=== PATIENT | female | born 1995 | race Caucasian/White ===

== ENCOUNTER → 2019-12-05 12:21 | Outpatient (CLI) | payer OTHER, SELFPAY ==
[2018-12-05 19:39] VITALS: BMI 24.3
--- NOTE | 2019-12-05 12:22 | US_ITS ---
STUDY: FIRST TRIMESTER OBSTETRICAL ULTRASOUND REASON FOR EXAM: Female, 24 years old VIABILITY LMP: October 11, 2019. TECHNIQUE: Transabdominal and Transvaginal TECHNICAL QUALITY: Adequate. PRIOR ULTRASOUND: None. FINDINGS: There is visualization of a single gestational sac in a normal intrauterine position. The mean sac diameter (MSD) measures 2.07 cm, indicating an estimated gestational age (EGA) of 7 weeks, 0 days. The gestational sac shape is within normal limits. There is a visualized yolk sac. The yolk sac measures 4 mm. The placenta is non-visualized. There is visualization of a live embryo. The crown-rump length (CRL) measures 3.1 mm, indicating an estimated gestational age (EGA) of 6 weeks, 1 days. There is demonstrated cardiac activity with a heart rate of 120 bpm. The estimated gestation age (EGA) by LMP is 7 weeks, 6 days. The estimated date of delivery (YAZMIN) by LMP is July 17, 2020. The estimated gestation age (EGA) by US is 6 weeks, 4 days. The estimated date of delivery (YAZMIN) by US is July 26, 2020. The uterus measures 8.5 cm x 6.5 cm x 4.8 cm. There is no demonstrated uterine fibroid. The cervix is closed. The right ovary measures 4.1 cm x 2.3 cm x 1.5 cm. There is no right ovarian cyst. There is no visualized right adnexal mass or complex lesion. The left ovary measures 3 cm x 2.3 cm x 1.6 cm. There is no left ovarian cyst. There is no visualized left adnexal mass or complex lesion. There is no fluid in the cul de sac. US/Init OB < 14Wks US IMPRESSION: Single live intrauterine gestation with a mean gestational age of 6 weeks and 4 days. Electronically Signed: Sebastian Chou, at 12:50 EST , Service support ,
== END ==
PROVIDERS: Referring Provider Obstetrics & Gynecology; Visit Provider Obstetrics & Gynecology
DX: Z34.90 Encounter for supervision of normal pregnancy, unspecified, unspecified trimester (principal)
CPT/HCPCS: 76801

== ENCOUNTER → 2019-12-26 | Outpatient (CLI) | payer OTHER, SELFPAY ==
[2019-12-25 14:17] VITALS: BMI 24.3
[2019-12-26 16:43] LABS: Amphetamine Urine VISTA NEGATIVE (<1000 ng/mL); Barbiturate Urine VISTA NEGATIVE (< 200 ng/mL); Benzodiazepine Urine VISTA NEGATIVE (< 200 ng/mL); Cocaine Urine VISTA NEGATIVE (< 300 ng/mL); Ecstacy Urine VISTA NEGATIVE (< 500 ng/mL); Methadone Urine VISTA NEGATIVE (< 300 ng/mL); PCP Urine VISTA NEGATIVE (< 25 ng/mL); THC Urine VISTA NEGATIVE (< 50 ng/mL); Vista UDS pH Range 6
[2019-12-26 19:07] LABS: Chlamydia Trachomatis by PCR Negative (Negative); Neisserai gonorrhoeae by PCR Negative (Negative); Probe Check PASS; Sample Adequacy Control PASS; Specimen Processing Control PASS
== END | disposition home or self-care (01) ==
LOC: LABSPEC 16:26
PROVIDERS: Referring Provider Obstetrics & Gynecology; Visit Provider Obstetrics & Gynecology
DX: Z34.90 Encounter for supervision of normal pregnancy, unspecified, unspecified trimester (principal)
CPT/HCPCS: 80307; 87077; 87086; 87088; 87186; 87491; 87591

== ENCOUNTER → 2020-01-02 13:30 | Outpatient (CLI) | payer OTHER, SELFPAY ==
[2019-12-25 14:17] VITALS: BMI 24.3
[2020-01-02 13:53] LABS: Absolute Lymphocyte Count 1.72 X10^3/uL (0.83-4.51); Absolute Neutrophil Count 7.1 X10^3/uL (2.0-7.7); Basophil# 0.01 X10^3/uL; Basophil% 0.1 % (0-1); Eosinophil# 0.05 X10^3/uL; Eosinophils% 0.5 % (0-5); Hematocrit 36.3 % (37-47); Hemoglobin 12.5 g/dL (12.0-15.0); Lymphocyte # 1.72 X10^3/ul (4.0); Lymphocyte % 18.3 % (19-41); Mean Corp Hgb Conc 34.4 g/dL (32-36); Mean Corpuscular Hgb 31.3 pg (27.0-32.0); Mean Platelet Vol. 10.3 fl (6.2-12.0); Monocyte# 0.51 X10^3/uL; Monocyte% 5.4 % (0-10); NRBC Flagged by Analyzer 0 % (0-5); Neutrophil # 7.06 X10^3/uL (2.7-7.7); Neutrophil % 75.4 % (47-70); Platelet Count 150 K/mm3 (150-450); RBC Distribution Width CV 11.9 % (11.6-14.6); RBC Distribution Width SD 39.3 fl (35.1-43.9); Red Blood Count 3.99 M/mm3 (4.2-5.4); White Blood Count 9.4 K/mm3 (4.4-11.0)
[2020-01-02 14:36] LABS: NATERA MAILED SPECIMEN
[2020-01-03 00:26] LABS: Rapid Plasmin Reagin (RPR) NONREACTIVE (NONREACTIVE)
[2020-01-03 09:24] LABS: HIV - WCH Non-Reactive (Nonreactive); Hepatitis B Surface Antigen Non-Reactive (Nonreactive); Hepatitis C Antibody Non-Reactive (Nonreactive); Rubella IgG 321.8 IU/mL
[2020-01-03 14:06] LABS: HSV 1 IgG < 0.91 index (0.00-0.90); HSV 2 IgG < 0.91 index (0.00-0.90)
== END ==
PROVIDERS: Referring Provider Obstetrics & Gynecology; Visit Provider Obstetrics & Gynecology
DX: Z34.81 Encounter for supervision of other normal pregnancy, first trimester (principal); Z20.2 Contact with and (suspected) exposure to infections with a predominantly sexual mode of transmission; Z31.430 Encounter of female for testing for genetic disease carrier status for procreative management
CPT/HCPCS: 36415; 85025; 86592; 86695; 86696; 86703; 86762; 86803; 86850; 86900; 86901; 87340

== ENCOUNTER → 2020-01-30 | Outpatient (CLI) | payer OTHER, SELFPAY ==
[2020-01-30 10:54] VITALS: BMI 24.3
== END | disposition home or self-care (01) ==
LOC: LABSPEC 14:03
PROVIDERS: Visit Provider Obstetrics & Gynecology
DX: R35.0 Frequency of micturition (principal)
CPT/HCPCS: 87086; 87088

== ENCOUNTER → 2020-05-09 11:41 | Outpatient (CLI) | payer OTHER, SELFPAY ==
[2020-05-09 11:09] VITALS: BMI 24.3
== END ==
PROVIDERS: Referring Provider Obstetrics & Gynecology; Visit Provider Obstetrics & Gynecology
DX: O26.892 Other specified pregnancy related conditions, second trimester (principal); Z3A.00 Weeks of gestation of pregnancy not specified
CPT/HCPCS: 36415; 86850; 86900; 86901

== ENCOUNTER → 2020-05-19 08:10 | Outpatient (CLI) | payer OTHER, SELFPAY ==
[2020-05-09 11:09] VITALS: BMI 24.3
[2020-05-19 08:55] LABS: Absolute Lymphocyte Count 1.57 X10^3/uL (0.83-4.51); Absolute Neutrophil Count 6.6 X10^3/uL (2.0-7.7); Basophil# 0.01 X10^3/uL; Basophil% 0.1 % (0-1); Eosinophil# 0.04 X10^3/uL; Eosinophils% 0.5 % (0-5); Hematocrit 35.2 % (37-47); Hemoglobin 11.8 g/dL (12.0-15.0); Lymphocyte # 1.57 X10^3/ul (4.0); Lymphocyte % 17.8 % (19-41); Mean Corp Hgb Conc 33.5 g/dL (32-36); Mean Corpuscular Hgb 32.8 pg (27.0-32.0); Mean Corpuscular Volume 97.8 fL (81-99); Mean Platelet Vol. 11.3 fl (6.2-12.0); Monocyte# 0.53 X10^3/uL; NRBC Flagged by Analyzer 0 % (0-5); Neutrophil # 6.57 X10^3/uL (2.7-7.7); Neutrophil % 74.6 % (47-70); Platelet Count 142 K/mm3 (150-450); RBC Distribution Width CV 12.7 % (11.6-14.6); RBC Distribution Width SD 45.1 fl (35.1-43.9); White Blood Count 8.8 K/mm3 (4.4-11.0)
[2020-05-19 09:11] LABS: Glucose Challenge Gest 1H 50g 113 mg/dL (70-140)
== END ==
PROVIDERS: Nurse Practitioner Women's Health; Referring Provider Obstetrics & Gynecology; Visit Provider Obstetrics & Gynecology
DX: Z34.90 Encounter for supervision of normal pregnancy, unspecified, unspecified trimester (principal)
CPT/HCPCS: 36415; 82950; 85025

== ENCOUNTER → 2020-05-26 09:13 | Outpatient (CLI) | payer OTHER, SELFPAY ==
[2020-05-26 08:56] VITALS: BMI 26.3
[2020-05-26 09:38] LABS: Absolute Lymphocyte Count 1.53 X10^3/uL (0.83-4.51); Absolute Neutrophil Count 7.6 X10^3/uL (2.0-7.7); Basophil# 0.02 X10^3/uL; Basophil% 0.2 % (0-1); Eosinophil# 0.05 X10^3/uL; Eosinophils% 0.5 % (0-5); Hematocrit 37.1 % (37-47); Hemoglobin 12.7 g/dL (12.0-15.0); Lymphocyte # 1.53 X10^3/ul (4.0); Lymphocyte % 15.5 % (19-41); Mean Corp Hgb Conc 34.2 g/dL (32-36); Mean Corpuscular Hgb 32.9 pg (27.0-32.0); Mean Corpuscular Volume 96.1 fL (81-99); Mean Platelet Vol. 10.9 fl (6.2-12.0); Monocyte# 0.58 X10^3/uL; Monocyte% 5.9 % (0-10); NRBC Flagged by Analyzer 0 % (0-5); Neutrophil # 7.59 X10^3/uL (2.7-7.7); Neutrophil % 76.6 % (47-70); Platelet Count 153 K/mm3 (150-450); RBC Distribution Width CV 13.1 % (11.6-14.6); RBC Distribution Width SD 45.4 fl (35.1-43.9); Red Blood Count 3.86 M/mm3 (4.2-5.4); White Blood Count 9.9 K/mm3 (4.4-11.0)
[2020-05-26 09:49] LABS: Fibrinogen 420 mg/dl (203-444)
[2020-05-27 14:06] LABS: Kleihauer-Betke Negative
== END ==
PROVIDERS: Referring Provider Obstetrics & Gynecology; Visit Provider Obstetrics & Gynecology
DX: S39.91XA Unspecified injury of abdomen, initial encounter (principal)
CPT/HCPCS: 36415; 85025; 85384; 85460

== ENCOUNTER → 2020-06-30 09:16 | Outpatient (CLI) | payer OTHER, SELFPAY ==
[2020-06-30 08:40] VITALS: BMI 26.3
[2020-07-01 15:45] LABS: HSV 1 IgG < 0.91 index (0.00-0.90); HSV 2 IgG < 0.91 index (0.00-0.90)
== END ==
PROVIDERS: Referring Provider Obstetrics & Gynecology; Visit Provider Obstetrics & Gynecology
DX: Z34.90 Encounter for supervision of normal pregnancy, unspecified, unspecified trimester (principal); Z20.2 Contact with and (suspected) exposure to infections with a predominantly sexual mode of transmission
CPT/HCPCS: 36415; 86695; 86696; 87081

== ENCOUNTER 2020-07-08 08:40 | Outpatient (CLI) | payer OTHER, SELFPAY ==
[2020-06-30 08:40] VITALS: BMI 26.3
[2020-07-08 08:48] VITALS: BMI 29.1
[2020-07-08 08:54] VITALS: BP 109/64; PULSE 97; TEMP 36.3; O2SAT 97
[2020-07-08 09:29] LABS: ROM Internal Control Test YES-OK TO RESULT pt. (Internal QC); ROM Patient Test Negative (Negative)
--- NOTE | 2020-07-08 14:17 | OB.TRI.PN ---
Progress Notes Date of Service: 07/08/20 Progress Note: 25-year-old G1 at 37 weeks gestation who presented for rule out rupture and rule out labor. Her cervix was fingertip which is unchanged from her exam in the office. ROM plus was negative. She was discharged home in stable condition. NST was reactive. She has a follow-up appointment in the office later this week. Laboratory Studies: Laboratory Tests 07/08/20 Range/Units 08:50 Vag Amniotic Fld Detect Negative (Negative) - Problem List (1) Vaginal discharge during Status: Acute (2) Antepartum asymptomatic bacteriuria Status: Acute Comment: repeat culture neg (3) Possible exposure to STD Status: Acute Comment: partner HSV pos, titers drawn- negative 12/25 (4) Status: Acute Qualifiers: Comment: NIPT low risk, carrier screening negative 14 out of 14, declined ntd screening. Anatomy US normal (5) Rh negative status during Status: Acute Qualifiers: Comment: rhogam given on 05/09 (6) Supervision of normal Status: Acute Qualifiers: Comment: PRR YAZMIN 07/29/20 girl Emma MYRIAM Jay Annie Select Codes - Urinary/Genital Urinary/Genital CPT Codes: 08703-48 non-stress test Interp
[2020-07-08 17:44] LABS: Mucous, Urine 0 SEEN /hpf (<or=2+); Red Blood Cells-Urine 0 SEEN /hpf (0-5)
[2020-07-08 17:51] LABS: Color, Urine Yellow (Yellow); Glucose, Dipstick Normal (Normal); Ketone-Dipstick Negative (Negative); Leukocyte Esterase-Dipstick 25 /ul (Negative); Nitrite-Dipstick Negative (Negative); Occult Blood-Urine 150 /ul (Negative); Protein-Dipstick Negative (Negative); Urine Bilirubin Dipstick Negative (Negative); Urine Clarity Clear (Clear); Urine Urobilinogen Normal (Normal)
[2020-07-08 18:10] VITALS: TEMP 36.6
[2020-07-08 18:16] LABS: Bacteria 1+ /hpf (None Seen); Squamous Epithelial Cells - UA 0-5 SEEN /hpf (5-10); White Blood Cells 0-5 SEEN /hpf (0-5)
--- NOTE | 2020-07-08 18:25 | OB.TRI.PN_ITS ---
Progress Notes Date of Service: 07/08/20 Progress Note: Patient is a 25-year-old G1, P0 at 37 weeks gestation who presents for vaginal bleeding and dysuria since evaluation in triage earlier today. Bleeding per RN is minimal. UA is positive for leukocytes and blood. NST is reactive. Macrobid sent to pharmacy. Discharged home in stable condition. Laboratory Studies: Laboratory Tests 07/08/20 07/08/20 Range/Units 17:00 08:50 Urine Color Yellow (Yellow) Urine Clarity Clear (Clear) Urine pH 8.0 (5.0 - 8.0) Ur Specific [place] 1.010 (1.002-1.030) Urine Protein Negative (Negative) mg/dl Urine Glucose (UA) Normal (Normal) mg/dl Urine Ketones Negative (Negative) mg/dl Urine Occult Blood 150 H (Negative) /ul Urine Nitrite Negative (Negative) Urine Bilirubin Negative (Negative) mg/dL Urine Urobilinogen Normal (Normal) mg/dl Ur Leukocyte Esterase 25 H (Negative) /ul Urine RBC 0 SEEN (0-5) /hpf Urine WBC 0-5 SEEN (0-5) /hpf Ur Squamous Epith Cells 0-5 SEEN (5-10) /hpf Urine Bacteria 1+ (None Seen) /hpf Urine Mucus 0 SEEN (<or=2+) /hpf Vag Amniotic Fld Detect Negative (Negative) - Problem List (1) Vaginal discharge during Status: Acute (2) Antepartum asymptomatic bacteriuria Status: Acute Comment: repeat culture neg (3) Possible exposure to STD Status: Acute Comment: partner HSV pos, titers drawn- negative 12/25 (4) Status: Acute Qualifiers: Comment: NIPT low risk, carrier screening negative 14 out of 14, declined ntd screening. Anatomy US normal (5) Rh negative status during Status: Acute Qualifiers: Comment: rhogam given on 05/09 (6) Supervision of normal Status: Acute Qualifiers: Comment: PRR YAZMIN 07/29/20 girl Emma Thompson (7) Dysuria in Status: Acute Comment: Seen in triage 07/08 for dysuria. UA positive leuks and blood. Culture pending. Multi Select Codes - Urinary/Genital Urinary/Genital CPT Codes: 59641-27 non-stress test Interp
[2020-07-08 18:35] VITALS: RESP 16; TEMP 36.6
== END 2020-07-08 18:30 | disposition home or self-care (01) ==
LOC: WPOUT 08:44 → OBT 08:45
PROVIDERS: Obstetrics & Gynecology; Referring Provider Obstetrics & Gynecology; Visit Provider Obstetrics & Gynecology
DX: O46.93 Antepartum hemorrhage, unspecified, third trimester (principal); O26.893 Other specified pregnancy related conditions, third trimester; R30.0 Dysuria; Z3A.37 37 weeks gestation of pregnancy
CPT/HCPCS: 59025; 59050; 81001; 84112; 87086; 87088; 99218; G0378

== ENCOUNTER → 2020-07-17 09:00 | Outpatient (CLI) | payer OTHER, SELFPAY ==
[2020-07-16 09:05] VITALS: BMI 29.1
== END ==
PROVIDERS: Referring Provider Obstetrics & Gynecology; Visit Provider Obstetrics & Gynecology
DX: Z11.59 Encounter for screening for other viral diseases (principal)
CPT/HCPCS: 87635; C9803; U0003

== ENCOUNTER → 2020-07-23 | Outpatient (CLI) | payer OTHER, SELFPAY ==
[2020-07-23 11:31] VITALS: BMI 29.1
[2020-07-23 12:41] LABS: ROM Internal Control Test YES-OK TO RESULT pt. (Internal QC); ROM Patient Test Negative (Negative)
== END | disposition home or self-care (01) ==
LOC: LABSPEC 12:17
PROVIDERS: Visit Provider Obstetrics & Gynecology
DX: Z34.90 Encounter for supervision of normal pregnancy, unspecified, unspecified trimester (principal)
CPT/HCPCS: 84112

== ENCOUNTER 2020-07-28 01:00 | Inpatient (IN) | payer OTHER, SELFPAY ==
[2020-07-23 11:31] VITALS: BMI 29.1
[2020-07-28] VITALS (30 sets, daily range): BP systolic 98–131; BP diastolic 54–82; PULSE 77–121; RESP 14–18; TEMP 36.1–37; O2SAT 96–100; BMI 28.4
[2020-07-28 00:58] LABS: ROM Internal Control Test YES-OK TO RESULT pt. (Internal QC)
[2020-07-28 00:59] LABS: ROM Patient Test POSITIVE (Negative)
[2020-07-28] MEDS: Lactated Ringers 1,000 ML 50 ML IV (01:55)
[2020-07-28 02:14] LABS: Absolute Lymphocyte Count 1.93 X10^3/uL (0.83-4.51); Absolute Neutrophil Count 8.5 X10^3/uL (2.0-7.7); Basophil# 0.02 X10^3/uL; Basophil% 0.2 % (0-1); Eosinophil# 0.07 X10^3/uL; Eosinophils% 0.6 % (0-5); Hematocrit 38.8 % (37-47); Hemoglobin 13.4 g/dL (12.0-15.0); Lymphocyte # 1.93 X10^3/ul (4.0); Lymphocyte % 16.9 % (19-41); Mean Corp Hgb Conc 34.5 g/dL (32-36); Mean Corpuscular Hgb 33.7 pg (27.0-32.0); Mean Corpuscular Volume 97.5 fL (81-99); Mean Platelet Vol. 11.4 fl (6.2-12.0); Monocyte# 0.81 X10^3/uL; Monocyte% 7.1 % (0-10); NRBC Flagged by Analyzer 0 % (0-5); Neutrophil # 8.51 X10^3/uL (2.7-7.7); Neutrophil % 74.2 % (47-70); Platelet Count 152 K/mm3 (150-450); RBC Distribution Width CV 12.9 % (11.6-14.6); RBC Distribution Width SD 45.4 fl (35.1-43.9); Red Blood Count 3.98 M/mm3 (4.2-5.4); White Blood Count 11.5 K/mm3 (4.4-11.0)
[2020-07-28] MEDS: 0.9% Saline Lock 10 ML Syringe IV ×3 (02:29→09:22)
--- NOTE | 2020-07-28 07:21 | PCM.HPOB.BLA ---
- Problem List (1) Active labor Status: Acute History and Physical Date of Admission: 07/28/20 OFFICE PROCEDURES Office Procedure Documentation entered by Kim Cerna MD 07/23/20 12:41: OB NST Non-Stress Test Indications for Monitoring: Yes other (contractions) Heart Rate Baseline: 150 Heart Rate Variability: moderate Movement: Present Heart Rate Accelerations: Present Decelerations: Absent Contractions: Absent Impression: Yes Reactive Non-Stress Test Results POC Urinalysis 2 Dip (Clinic) Office Urine Glucose Negative Last Edit by Paradise Paige on 07/23/20 11:31 Office Urine Protein Negative Last Edit by Paradise Paige on 07/23/20 11:31 Intake Vital Signs 07/23/20 BMI 29.1 07/23/20 Height 5 ft 4 in 07/23/20 Weight: 174 lb 8 oz 07/23/20 BMI 29.9 07/23/20 BP 114/68 Intake Visit Reasons: ?LoF Drug Abuse Worker Required: No Is patient in pain?: No Allergies No Known Allergies Allergy (Verified 07/23/20 11:31) Medications vitamin#30 30 mg iron-10 mg iron-folic acid 1 mg-omg3 capsule 1 cap PO DAILY 12/25/19 [History Confirmed 07/23/20] Last Menstral Period: 11/27/18 Zika: Zika virus screening: Negative : No PFSH PFSH Surgical History L FOOT SURGERY SHATTERED BONE IN GYMNASTICS 2011 (Acute) [place] teeth extracted (Acute) Family History Grandfather Diabetes Uncle Heart disease Mother Anemia Hypertension Father High cholesterol Aunt Thyroid disorder Other Lung cancer Social History (Updated 07/23/20 @ 12:[address] 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 OB Visit YAZMIN Calculator Estimated Delivery Date Method Current WG Current Estimate 07/26/20 Ultrasound #1 39w 4d Other Estimates 07/17/20 LMP (Certain) 40w 6d Expected Delivery Route/Plan Labor Preferences- signed up for classes labor support person: Jay pain management options preferred:minimal intervention, open to epidural, hydrotherapy, massage, IA, delay pp pitocin cut cord/dad catch: yes : yes PP control planned: condoms, NFP discussed possible routes of delivery and associated risks: discussed possible delivery modalities and possible indications for each including R/B/A of , VAVD, and CS. questions answered. special requests: none Specific Issue/Plans flu vaccine: declined tdap vaccine: given rhogam: given LARC form signed: declined movement and labor precautions reviewed. Problem list reviewed and updated with the most current plan of care details and appropriate orders placed. Relevant counseling for the gestational age provided. Continue routine care and follow up unless otherwise noted in visit notes/problem list details Initial Weight: 125 lb Date EGA Weight BP Urine Prot Glucose FHR FuHt Pres Dilation Effaced St Visit Note 01/25/20 13w 6d 130 lb (+5 lb) 108/60 Negative Negative 145 SM- no vb cramping 01/30/20 14w 4d 132 lb 6 oz (+7 lb 6 oz) 110/64 Negative Negative 140 uti treated 04/01/20 23w 3d 148 lb (+23 lb) 108/64 Negative Negative 151 23 MH-NO VB, LOF. Good FM. 05/09/20 28w 6d 160 lb 6 oz (+35 lb 6 oz) 108/60 Negative Negative 150 29 Sm- no vb lof good fm no regular ctx 05/19/20 30w 2d 163 lb 4 oz (+38 lb 4 oz) 106/60 Negative Negative 150 31 Cephalic SM- no vb lof good fm no regular ctx, discussed sciatic pain, seeing chiropractor, massage 05/26/20 31w 2d 163 lb (+38 lb) 102/58 Negative Negative 145 Cephalic SM- s/p fall, minimal abdominal trauma, feeling good movement. limited bedside ultrasound shows good FHT and nl keiko, gross movement, check cbc fibrinogen and kleihauer betke 06/04/20 32w 4d 166 lb (+41 lb) 114/62 Negative Negative 140 33 Cephalic SM- no vb lof good fm no regular ctx 06/16/20 34w 2d 170 lb (+45 lb) 120/62 Negative Negative 140 35 Cephalic Sm- no vb lof good fm no regular ctx 06/30/20 36w 2d 173 lb (+48 lb) 106/64 Negative Negative 140 36 Cephalic Sm- no vb lof good fm n oregular ctx gbs today 07/10/20 37w 5d 175 lb (+50 lb) 104/58 Negative Negative 140 37 Cephalic SM- no vb lof good fm no regular ctx 07/16/20 38w 4d 176 lb 4 oz (+51 lb 4 oz) 108/58 Negative Negative 155 38 Cephalic 1.5 50 -2 GP - no LOF, VB, DFM, ctx. Membranes stripped today. 07/17/20 38w 5d 175 lb 4 oz (+50 lb 4 oz) 128/76 Negative Negative 150 Cephalic 1.5 50 -2 GP - Problem visit for ctx. Cervix unchanged from yesterday. Labor precautions reviewed. 07/23/20 39w 4d 174 lb 8 oz (+49 lb 8 oz) 114/68 Negative Negative 150 39 Cephalic 2 50 -2 GP - Reports LOF this am. ROM+ sent. Still tabby irregularly. No VB or DFM. ACOG First Trimester First Trimester: Desire for , Alcohol, Tobacco Cessation, Illicit/Recreational Drug/Substance Use, Intimate Partner Violence, Barriers to care, Unstable Housing, Communication Barriers, Environmental/Work Hazards, Anticipated Course of Care, Toxoplasmosis Precations, Use of Any medications, Sexual activity, Exercise, Dental Care, Sauna/Hot tub use, Seat Belt use, Childbirth classes/Hospital facilities, , Travel, Indications for US and Screening for Aneuploidy Diagnostics Diagnostics Diagnostics Glucose 1 Hr 50 gm 113 mg/dL (70-140) 05/19/20 Hgb 12.7 g/dL (12.0-15.0) 05/26/20 Hct 37.1 % (37-47) 05/26/20 Details: HIV: Urine Culture: Sequential Screen: NIPT Screen: ROS Const Reports fatigue, Denies fever(s), Denies increased appetite, Denies weight gain Card Denies chest pain, Denies shortness of breath Resp Denies shortness of breath GI Denies constipation, Reports heartburn, Reports nausea, Reports vomiting Denies abnormal vaginal bleeding, Denies painful urination, Denies nipple discharge, Denies pelvic pain, Denies vaginal discharge, Denies vaginal odor, Denies vaginal itching Skin/Breast Reports breast pain, Reports breast swelling, Denies nipple discharge Psych Denies anxiety, Denies depression Endo Reports fatigue Exam Const General: cooperative, healthy appearing, comfortable, no acute distress, well developed, well groomed Nutritional Appearance: average body habitus, well nourished Orientation: alert, awake, oriented x3 [facility] Head: normal to inspection, normocephalic, atraumatic Eyes Pupils: PERRL, accommodation normal Resp Effort & Inspection: normal respiratory effort, able to speak in complete sentences, symmetric chest movement Cardio Rate: regular rate GI Palpation: soft, no guarding, no masses, nontender Skin General: no rashes or lesions noted, elasticity normal, turgor normal Neuro General: alert, awake, oriented x3 Cranial Nerves: CN's II-XI intact bilaterally, sense of smell intact, PERRL, accommodation normal, EOM intact bilaterally Speech: speech normal Gait: normal gait Psych Appearance: grossly normal, well kempt Mental Status: mental status grossly normal Mood: congruent mood Affect: normal affect Speech and Movement: speech and movement normal Attitude: cooperative Thought Process: normal Thought Content: normal Judgment: judgment good Results POC Urinalysis 2 Dip (Clinic) Office Urine Glucose Negative Last Edit by Paradise Paige on 07/23/20 11:31 Office Urine Protein Negative Last Edit by Paradise Paige on 07/23/20 11:31 Assessment & Plan Problems 1. Influenza vaccination declined Z28.21 07/10/2020sc 2. Vaginal discharge during O26.899; N89.8 3. Dysuria in O26.899; R30.0 Seen in triage 07/08 for dysuria. UA positive leuks and blood. Culture pending. 4. Antepartum asymptomatic bacteriuria O99.89; R82.71 repeat culture neg 5. Possible exposure to STD Z20.2 partner HSV pos, titers drawn- negative 12/25 6. Supervision of normal Z34.90 PRR YAZMIN 07/29/20 girl Emma Thompson 7. Rh negative status during O26.899; Z67.91 rhogam given on 05/09 8. 39 weeks gestation of Z3A.39 NIPT low risk, carrier screening negative 14 out of 14, declined ntd screening. Anatomy US normal Plan Becoming more uncomfortable and already started maternity leave. Asking about induction. Still desires natural labor with minimal intervention. Discussed that natural labor is much more difficult with an induction as this typically takes much longer than active labor. Will see back next week and see if more dilated to determine timing of induction. Orders Orders: POC Urinalysis 2 Dip (Clinic) Today (ROM) Rupture Of Membranes Today Z34.90 Coding Level of Care Code OB Routine Diagnoses Influenza vaccination declined Z28.21 Vaginal discharge during O26.899; N89.8 Dysuria in O26.899; R30.0 Antepartum asymptomatic bacteriuria O99.89; R82.71 Possible exposure to STD Z20.2 Supervision of normal Z34.90 Rh negative status during O26.899; Z67.91 39 weeks gestation of Z3A.39 ??Weeks of gestation: 39 weeks Patient presents IAL, plan expectant management for , pitocin PRN if needed. Pain management: desires minimal intervention. GBS negative. Management of any complications: none I have reviewed the [facility] and made any clinically relevant updates. UPDATE- I have seen the patient and performed any clinically relevant updates to the history and physical exam. Kim Cerna MD
[2020-07-28] MEDS: Ondansetron 4 MG/2 ML Vial IV (07:56)
[2020-07-28] MEDS: fentaNYL 100 MCG/2 ML Ampul IV (09:21)
--- NOTE | 2020-07-28 10:15 | PCM.OPRPT ---
Problem List (1) Active labor Status: Acute (2) Influenza vaccination declined Status: Acute Comment: 07/10/2020sc (3) Vaginal discharge during Status: Acute (4) Dysuria in Status: Acute Comment: Seen in triage 07/08 for dysuria. UA positive leuks and blood. Culture pending. (5) Antepartum asymptomatic bacteriuria Status: Acute Comment: repeat culture neg (6) Possible exposure to STD Status: Acute Comment: partner HSV pos, titers drawn- negative 12/25 (7) Supervision of normal Status: Acute Qualifiers: Comment: PRR YAZMIN 07/29/20 yodit Thompson (8) Rh negative status during Status: Acute Qualifiers: Comment: rhogam given on 05/09 (9) Status: Acute Qualifiers: Weeks of gestation: 39 weeks Qualified Code(s): Z3A.39 - 39 weeks gestation of Comment: NIPT low risk, carrier screening negative 14 out of 14, declined ntd screening. Anatomy US normal Vaginal Delivery Maternal Presentation: Active Labor ial 40 weeks Amniotic Membrane Rupture Type: Spontaneous at home - 11pm 07/27 Amniotic Fluid Description: Clear Final YAZMIN: 07/29/20 Gestational age: 39 Weeks and 6 Days Date of Procedure: 07/28/20 Pre-Operative Diagnosis: ial Post-Operative Diagnosis: same Surgery/ Procedure Performed: Spontaneous Vaginal Delivery Type of Anesthesia: None Description of Procedure: Patient began pushing and delivered the head in the LUIS MIGUEL presentation. The head was delivered atraumatically and a loose nuchal cord ?1 was identified and easily delivered through. The anterior and posterior shoulders delivered without complication followed by the rest of the infant and the infant was placed on the maternal abdomen. Delayed cord clamping was employed for approximately 60 seconds. Cord was clamped and cut and gentle traction was applied to the cord and the placenta delivered spontaneously immediately following it was noted to be intact with three-vessel cord. The perineum and vagina were inspected and noted to have no significant laceration. EBL was 400 cc. Patient and infant tolerated delivery well. Presentation: LUIS MIGUEL Placental Delivery Description: Spontaneous Placenta Disposition: [facility] Cord Vessel Description: 3 Vessels Cord Entanglement: Around neck x 1, loose Estimated Blood Loss: 400 Infant A gender: Female Episiotomy Description: None Laceration: None Medications given after delivery: IV Pitocin Complications: None
[2020-07-28] MEDS: Oxytocin 30 units/NS 500 ml 30 UNITS/500 ML IV.SOLN 334 UNITS IV (10:50)
[2020-07-28] MEDS: Naproxen 250 MG Tablet 500 MG PO ×2 (11:24→19:10)
[2020-07-28] MEDS: Acetaminophen 500 MG Tablet 1000 MG PO (17:17)
--- NOTE | 2020-07-28 20:10 | NURSING ---
Patient and FOB requested to delay first bath until they are at home. This RN went over bathing procedure and cord care with both parents. Patient verbalized understanding and denied additional questions.
[2020-07-29 00:12] VITALS: BP 96/65; PULSE 75; RESP 16; TEMP 36.6
[2020-07-29 04:39] VITALS: BP 91/58; PULSE 81; RESP 16; TEMP 36.4
[2020-07-29] MEDS: Naproxen 250 MG Tablet 500 MG PO ×2 (04:44→14:20)
--- NOTE | 2020-07-29 08:05 | PCM.PN.OB ---
Patient Problems: Active and Suspected Problems (Last Reviewed 07/23/20 @ 11:31 by Paradise Paige) Active labor (Acute) Subjective: Patient doing well without complaints. Tolerating PO. Ambulating and voiding without difficulty. Breast feeding well. Denies chest pain, shortness of breath, calf pain/swelling, fevers, chills, lightheadedness. - Physical Exam Vitals/I&O's: Vital Signs Temp Pulse Resp BP Pulse Ox 97.6 F L 81 16 91/58 L 96 07/29/20 04:39 07/29/20 04:39 07/29/20 04:39 07/29/20 04:39 07/28/20 15:10 Oxygen Delivery Method Room Air Weight: 176 lb Body Mass Index (BMI) 28.4 Intake and Output for Last 24 Hours 07/27/20 07/28/20 07/29/20 23:59 23:59 23:59 Intake Total 2228.33 / 2228.33 Output Total 2300 / 2300 Balance -71.67 / -71.67 General: Alert, Oriented x3 Abdomen: Soft, Non Tender, - - FF below U Laboratory Results 07/28/20 13:40: Screen NEGATIVE, Baby's Blood Type A POSITIVE, Baby's ISABEL NEGATIVE Current Medications Acetaminophen (Tylenol) 1,000 mg PO Q8H PRN PRN PRN Reason: Pain Score 1-3/10 Last Admin: 07/28/20 17:17 Dose: 1,000 mg Documented by: Bisacodyl (Dulcolax) 10 mg RECTAL UD PRN PRN Reason: If no BM Dibucaine (Dibucaine) 1 applic TOPICAL TID PRN PRN; Protocol PRN Reason: Discomfort Hydrocortisone (Hytone) 1 applic TOPICAL TID PRN PRN; Protocol PRN Reason: Discomfort Methylergonovine Maleate (Methergine) 0.2 mg IM X1 PRN PRN Reason: Excess bleeding/uterine atony Naproxen (Naprosyn) 500 mg PO Q8H PRN PRN PRN Reason: Pain Score 1-3/10 Last Admin: 07/29/20 04:44 Dose: 500 mg Documented by: Ondansetron HCl (Zofran) 4 mg IV Q4H PRN PRN PRN Reason: Nausea Oxycodone HCl (Oxyir) 5 - 10 mg PO Q4H PRN PRN PRN Reason: Pain Score 4-10/10 Multivit/Folic Acid/Iron (Prenatabs Fa) 1 tablet PO DAILY@1200 ASHLEIGH Senna/Docusate Sodium (Senokot-S, Chelsie-Colace) 1 - 2 tablet PO DAILY PRN PRN PRN Reason: Constipation Simethicone (Mylicon) 80 mg PO PCHS PRN PRN Reason: Indigestion/Stomach pain Sodium Chloride () 5 - 15 ml IV UD PRN PRN Reason: SALINE FLUSH Medical Necessity - Tobacco Use Smoking Status: Never smoker Assessment/Plan All Active Problems (Last Reviewed 07/23/20 @ 11:31 by Paradise Paige) Active labor (Acute) Influenza vaccination declined (Acute) Vaginal discharge during (Acute) Dysuria in (Acute) Antepartum asymptomatic bacteriuria (Acute) Possible exposure to STD (Acute) Supervision of normal (Acute) Rh negative status during (Acute) (Acute) Bronchitis (Resolved) Fever (Resolved) Lower abdominal pain (Resolved) Maxillary sinusitis (Resolved) Nausea (Resolved) s/p PPD # 1 1. routine post delivery care 2. breast feeding- support given 3. rh negative 4. rubella immune 5. home today
--- NOTE | 2020-07-29 08:06 | DCINST_ITS ---
Additional Instructions: If you experience any of the following, contact your healthcare provider. * Bleeding that soaks a pad every hour for 2 hours * Fever 100.4 or higher * Unrelieved incision or abdominal pain * Swelling, redness, discharge or bleeding from your incision or episiotomy site * Your incision begins to separate * Problems urinating (including inability to urinate or burning while urinating). * Visual changes * Severe headache * Flu-like symptoms * Pain or redness in one of both of your breasts * Pain, warmth, tenderness or swelling in your legs, especially the calf area * Frequent nausea and vomiting * Symptoms of depression or anxiety If you experience any of the following, call 911 or go to the nearest Emergency Room. * Chest pain * Problems breathing * Seizure activity * Partial or complete paralysis of a body part, slurred speech, weakness or drooping of the face, or a sudden inability to walk or hold your balance Allergies/Adverse Reactions: Allergies No Known Allergies Allergy (Verified 07/28/20 00:36) Medications to take at Discharge vitamin#30 30 mg iron-10 mg iron-folic acid 1 mg-omg3 capsule 1 cap PO DAILY 12/25/19 Primary Care Physician: Care Physician,No Primary [Primary Care Provider] - Test Results: Test results from this visit will be discussed in further detail at your follow- up appointment, if applicable.
--- NOTE | 2020-07-29 08:06 | PCM.DCVAG ---
Additional Instructions: If you experience any of the following, contact your healthcare provider. Bleeding that soaks a pad every hour for 2 hours Fever 100.4 or higher Unrelieved incision or abdominal pain Swelling, redness, discharge or bleeding from your incision or episiotomy site Your incision begins to separate Problems urinating (including inability to urinate or burning while urinating). Visual changes Severe headache Flu-like symptoms Pain or redness in one of both of your breasts Pain, warmth, tenderness or swelling in your legs, especially the calf area Frequent nausea and vomiting Symptoms of depression or anxiety If you experience any of the following, call 911 or go to the nearest Emergency Room. Chest pain Problems breathing Seizure activity Partial or complete paralysis of a body part, slurred speech, weakness or drooping of the face, or a sudden inability to walk or hold your balance Allergies/Adverse Reactions: Allergies No Known Allergies Allergy (Verified 07/28/20 00:36) Medications to take at Discharge vitamin#30 30 mg iron-10 mg iron-folic acid 1 mg-omg3 capsule 1 cap PO DAILY 12/25/19 Primary Care Physician: Care Physician,No Primary [Primary Care Provider] - Test Results: Test results from this visit will be discussed in further detail at your follow-up appointment, if applicable.
[2020-07-29 08:32] VITALS: BP 94/59; PULSE 87; RESP 16; TEMP 37.1
[2020-07-29 14:00] VITALS: BP 110/64; PULSE 79; RESP 16; TEMP 36.3
[2020-07-29] MEDS: Prenatal Vits Tablet 1 TABLET PO (14:21)
== END 2020-07-29 15:50 | disposition home or self-care (01) | DRG 807 ==
LOC: WPOUT 01:11 → WP 01:11
PROVIDERS: Obstetrics & Gynecology; Admitting Provider Obstetrics & Gynecology; Visit Provider Obstetrics & Gynecology
DX: O69.81X0 Labor and delivery complicated by cord around neck, without compression, not applicable or unspecified (principal); Z37.0 Single live birth; Z3A.39 39 weeks gestation of pregnancy; O26.893 Other specified pregnancy related conditions, third trimester; Z67.91 Unspecified blood type, Rh negative; Z20.2 Contact with and (suspected) exposure to infections with a predominantly sexual mode of transmission
CPT/HCPCS: 59025; 59050; 84112; 85025; 85461; 86850; 86900; 86901; 90384; 99218; J7120; A4216; G0378; J2405; J2790

== ENCOUNTER → 2020-09-08 | Outpatient (CLI) | payer OTHER, SELFPAY ==
[2020-09-08 09:47] VITALS: BMI 24.8
[2020-09-15 04:40] LABS: HPV Reflexed? NOT INDICATED
== END | disposition home or self-care (01) ==
LOC: LABSPEC 13:59
PROVIDERS: Referring Provider Obstetrics & Gynecology; Visit Provider Obstetrics & Gynecology
DX: Z12.4 Encounter for screening for malignant neoplasm of cervix (principal)
CPT/HCPCS: 88175; G0145

== ENCOUNTER 2021-11-12 10:06 | Outpatient (CLI) | payer BC, SELFPAY ==
[2021-11-12 10:21] LABS: Absolute Lymphocyte Count 1.72 X10^3/uL (0.83-4.51); Absolute Neutrophil Count 3.1 X10^3/uL (2.0-7.7); Basophil# 0.01 X10^3/uL; Basophil% 0.2 % (0-1); Eosinophil# 0.06 X10^3/uL; Eosinophils% 1.1 % (0-5); Hematocrit 38.3 % (37-47); Hemoglobin 12.9 g/dL (12.0-15.0); Lymphocyte # 1.72 X10^3/ul (0.83-4.51); Lymphocyte % 32.5 % (19-41); Mean Corp Hgb Conc 33.7 g/dL (32-36); Mean Corpuscular Hgb 30.7 pg (27.0-32.0); Mean Corpuscular Volume 91.2 fL (81-99); Mean Platelet Vol. 11.2 fl (6.2-12.0); Monocyte# 0.44 X10^3/uL; Monocyte% 8.3 % (0-10); NRBC Flagged by Analyzer 0 % (0-5); Neutrophil # 3.06 X10^3/uL (2.7-7.7); Neutrophil % 57.7 % (47-70); Platelet Count 155 K/mm3 (150-450); RBC Distribution Width CV 12.3 % (11.6-14.6); RBC Distribution Width SD 40.7 fl (35.1-43.9); White Blood Count 5.3 K/mm3 (4.4-11.0)
[2021-11-12 11:12] LABS: Thyroid Stim Hormone (TSH) 0.91 uIU/mL (0.358-3.74)
[2021-11-15 10:07] LABS: Testosterone, % Free 1.82 % (0.50-2.80); Testosterone, Free 0.29 ng/dL (0.10-0.85); Testosterone, Total 16 ng/dL (13-71)
== END 2021-11-12 23:59 | disposition short-term general hospital (02) ==
PROVIDERS: Referring Provider Obstetrics & Gynecology; Visit Provider Obstetrics & Gynecology
DX: N93.9 Abnormal uterine and vaginal bleeding, unspecified (principal)
CPT/HCPCS: 36415; 82627; 84402; 84403; 84443; 85025; 82626

== ENCOUNTER 2022-02-18 06:36 | Outpatient (CLI) | payer OTHER, SELFPAY ==
[2022-02-22 05:06] LABS: Chlamydia By Nucleic Acid AMP Negative (Negative)
[2022-02-22 14:29] LABS: Gonococcus By Nucleic Acid AMP Negative (Negative)
== END 2022-02-18 23:59 | disposition home or self-care (01) ==
LOC: LABSPEC 02-19 06:36
PROVIDERS: Referring Provider Obstetrics & Gynecology; Visit Provider Obstetrics & Gynecology
DX: Z34.90 Encounter for supervision of normal pregnancy, unspecified, unspecified trimester (principal)
CPT/HCPCS: 87086; 87491; 87591

== ENCOUNTER → 2022-03-05 | Outpatient (CLI) | payer OTHER, SELFPAY ==
[2022-03-05 10:15] LABS: NATERA MAILED SPECIMEN
== END | disposition home or self-care (01) ==
LOC: PAVLAB 09:11
PROVIDERS: Referring Provider Obstetrics & Gynecology; Visit Provider Obstetrics & Gynecology
DX: Z34.81 Encounter for supervision of other normal pregnancy, first trimester (principal)
CPT/HCPCS: 36415